=== PATIENT | female | born 1995 | race African-American/Black ===

== ENCOUNTER 2024-05-13 08:29 | Emergency (ER) | payer OTHER ==
[~2024-05-13] VITALS: Ht 175.3 cm; Wt 91.0 kg
[2024-05-13 08:37] VITALS: TEMP 100; O2SAT 98
[2024-05-13 08:38] VITALS: O2SAT 99
[2024-05-13 09:21] VITALS: BP 108/74; PULSE 104; RESP 18
[2024-05-13] MEDS: IBUPROFEN 600MG TABLET PO ONE (09:21)
[2024-05-13] MEDS: ONDANSETRON HCL 4MG TABLET PO ONE (10:06)
[2024-05-13] MEDS ORDERED: IBUP-2029 MT (10:16)
[2024-05-13] MEDS ORDERED: ONDA4TAB50 MT (10:16)
== END 2024-05-13 10:30 | disposition home or self-care (01) ==
LOC: ER 08:29
DX: M79.10 Myalgia, unspecified site (principal); R50.9 Fever, unspecified; R11.2 Nausea with vomiting, unspecified; Z20.822 Contact with and (suspected) exposure to COVID-19
CPT/HCPCS: 99283; 87426; 87430; 87070; 87804 ×2; Q0162